=== PATIENT | female | born 1960 | race Two or more races ===

== ENCOUNTER 2016-05-08 23:32 | Emergency (ER) | payer OTHER ==
[2016-05-09] MEDS ORDERED: GABAPENTIN 300 MG CAPSULE PO ONE (03:41)
--- NOTE | 2016-05-09 03:46 | ER Document Report ---
[id number] Notes: Patient is 55-year-old female who presents with complaint of pain into the right hand. Patient's wheezing which is secondary language. She did bring her daughter and her daughter requested that she be learning designer whenever her mother needs help. The daughter did help translate the conversation between me and the patient. Patient says that she has had this pain for last 2 months. No fevers or infections. No recent trauma. Patient works as is a housewife. She says that she knows is the pain is better when she moves arm. Pain is worse at night when standing still. She's had some intermittent swelling to the right hand and arm. Pain is mostly in the hand but radiates up the arm. As of recently the pain has been radiating more up into the arm. No other complaints at this time. Has not seen a doctor about this. TRAVEL OUTSIDE OF THE [place] IN LAST 30 DAYS: No - Related Data Allergies/Adverse Reactions: No Known Allergies Allergy (Verified 05/08/16 23:56) Past Medical History - Social History Smoking Status: Never Smoker Frequency of alcohol use: None Drug Abuse: None Family History: Reviewed & Not Pertinent Patient has suicidal ideation: No Patient has homicidal ideation: No Renal/ Medical History: Denies: Hx Peritoneal Dialysis Past Surgical History: Reports: Hx Section - x3 - Immunizations Hx Diphtheria, Pertussis, Tetanus Vaccination: Yes Review of Systems - Review of Systems Notes: My Normal Review Basic REVIEW OF SYSTEMS: CONSTITUTIONAL : Denies fever, chills, or sweats. Denies recent illness. MUSCULOSKELETAL: Right arm pain SKIN: Denies rash or skin lesions. NEUROLOGICAL: Denies altered mental status or loss of consciousness. Denies headache. Denies weakness or paralysis or loss of use of either side. Denies problems with gait or speech. Denies sensory or motor loss. ALL OTHER SYSTEMS REVIEWED AND NEGATIVE. Physical Exam - Vital signs Vitals: Temp Pulse BP Pulse Ox 97.3 F 69 131/68 H 97 05/08/16 23:42 05/08/16 23:42 05/08/16 23:42 05/08/16 23:42 - Notes Notes: General Appearance: Well nourished, alert, cooperative, no acute distress, mild obvious discomfort. Vitals: reviewed, See vital signs table. Extremities: strength 5/5 in all extremities, good pulses in all extremities, mild tenderness to palpation of the right hand. Some pain made worse with hyperflexion or hyperextension of the wrist. Negative Tinel sign. Distal sensation intact. Patient is able move all fingers but says she has some pain in doing so. Some swelling into the right hand. Capillary refills intact. Distal pulses are intact. No redness. Skin: warm, dry, appropriate color, no rash Neuro: speech clear, oriented x 3, normal affect, responds appropriately to questions. Course - Vital Signs Vital signs: Temp Pulse Resp BP Pulse Ox 97.4 F 66 16 122/46 L 96 05/09/16 03:58 05/09/16 03:58 05/09/16 03:58 05/09/16 03:58 05/09/16 03:58 - Transfer of Care Notes: 05/09/16 06:13 I suspect that most likely etiology behind patient's pain in the hand is nerve impingement or compression. This could be couple tunnel. There are some atypical cyst symptoms for that and that the pain does radiate all the way up the arm. She does have some slight swelling in the hand and distal arm and therefore I feel that ultrasound should still be performed on any type of clotting. I did offer to have the patient stay here tonight will do in the morning. Patient says she prefers to go home and come back in ultrasound called in during the day. Patient will be discharged home with gabapentin to treat for possible neuropathic pain. I informed her that if the ultrasound is negative and she needs to follow-up with the orthopedist or neurologist for further evaluation and testing to determine if this truly is a nerve impingement. Patient encouraged return to ER medially she has any redness, increased swelling, worsening pain. Patient agrees with plan and will be discharged home. Dictation of this chart was performed using voice recognition software; therefore, there may be some unintended grammatical errors. Discharge - Discharge Clinical Impression: Hand pain, right Condition: Good Disposition: HOME, SELF-CARE Additional Instructions: Please return to the ER between 8am and 6pm to have a venous ultrasound of your left arm to rule out blood clot. Please return to the ER immediately if you have worsening pain. If your ultrasound is negative please follow up with the neurologist or orthopedist closely for further revaluation to rule out a pinched nerve in your arm. Return to the ER immediately if you develop any redness or swelling in the arm. Prescriptions: Gabapentin [Neurontin 300 mg Capsule] 300 mg PO QHS #30 cap Referrals: JERE RODRIGUEZ MD [EMERITUS] - Follow up in 3-5 days OMAR HUBER MD [ACTIVE STAFF] - Follow up in 3-5 days
[2016-05-09 04:02] VITALS: BP 122/46
== END 2016-05-09 04:03 | disposition home or self-care (01) ==
LOC: ER 23:32
DX: M79.641 Pain in right hand (principal)
CPT/HCPCS: 99282

== ENCOUNTER → 2016-05-10 | Outpatient (CLI) | payer OTHER ==
--- NOTE | 2016-05-10 16:34 | XCELERA REPORT ---
[address] [address] Upper Extremity Venous Evaluation Name: JUAN JACKSON Age: 55 yrs Gender: Female : 1960 Patient Status: Outpatient Patient Location: Study Date: 05/10/2016 12:57 PM Procedure: Unilateral duplex scan of the right upper extremity veins was performed, including responses to compression and other maneuvers. Reason For Study: RUE PAIN Ordering Physician: DOMINGA LOUIE Performed By: Josefina House Right Side Venous Evaluation Normal vessel filling wall to wall, compression and augmentation as well as Colour flow down to the forearm veins. Interpretation Summary Normal compression, patency, spontaneous and phasic flow of the right upper extremity veins. : DOMINGA LOUIE > Rashel Hernandez
== END ==
LOC: SP 11:58
PROVIDERS: ATTEND Emergency Medicine
DX: M79.601 Pain in right arm (principal); M79.89 Other specified soft tissue disorders
CPT/HCPCS: 93971

== ENCOUNTER 2017-04-07 22:07 | Inpatient (IN) | payer SELFPAY ==
[2017-04-07] MEDS ORDERED: PREDNISONE 20 MG TABLET PO ONE (23:59)
[2017-04-07] MEDS ORDERED: IPRATROPIUM/ALBUTEROL 0.5-2.5 MG/3 ML AMPUL NEB ONE (23:59)
--- NOTE | 2017-04-08 | ER Document Report ---
ED General - General Chief Complaint: Flu Symptoms Stated Complaint: COLD SYMPTOMS Time Seen by Provider: 04/07/17 23:57 Mode of Arrival: Ambulatory Information source: Patient Notes: 56 years old female presents today with runny nose sore throat cough wheezing for the last few days. No fever chills. She is having on and off chest pain while coughing. Denies any nausea vomiting abdominal pain dysuria frequency urgency. TRAVEL OUTSIDE OF THE [place] IN LAST 30 DAYS: No - Related Data Allergies/Adverse Reactions: No Known Allergies Allergy (Verified 05/08/16 23:56) Past Medical History - Social History Smoking Status: Unknown if Ever Smoked Chew tobacco use (# tins/day): No Frequency of alcohol use: Rare Drug Abuse: None Family History: Reviewed & Not Pertinent Patient has suicidal ideation: No Patient has homicidal ideation: No Renal/ Medical History: Denies: Hx Peritoneal Dialysis Past Surgical History: Reports: Hx Section - x3 - Immunizations Hx Diphtheria, Pertussis, Tetanus Vaccination: Yes Review of Systems - Review of Systems Notes: REVIEW OF SYSTEMS: CONSTITUTIONAL : Denies fever, chills, or sweats. Denies recent illness. EENT: Denies eye, ear, throat, or mouth pain or symptoms. Denies nasal or sinus congestion or discharge. Denies throat, tongue, or mouth swelling or difficulty swallowing. CARDIOVASCULAR: Denies chest pain. Denies palpitations or racing or irregular heart beat. Denies ankle edema. RESPIRATORY: As per history of complain GASTROINTESTINAL: Denies abdominal pain or distention. Denies nausea, vomiting , or diarrhea. Denies blood in vomitus, stools, or per rectum. Denies black, tarry stools. Denies constipation. GENITOURINARY: Denies difficulty urinating, painful urination, burning, frequency, blood in urine, or discharge. FEMALE GENITOURINARY: Denies vaginal bleeding, heavy or abnormal periods, irregular periods. Denies vaginal discharge or odor. MUSCULOSKELETAL: Denies back or neck pain or stiffness. Denies joint pain or swelling. SKIN: Denies rash, lesions or sores. HEMATOLOGIC : Denies easy bruising or bleeding. LYMPHATIC: Denies swollen, enlarged glands. NEUROLOGICAL: Denies confusion or altered mental status. Denies passing out or loss of consciousness. Denies dizziness or lightheadedness. Denies headache. Denies weakness or paralysis or loss of use of either side. Denies problems with gait or speech. Denies sensory loss, numbness, or tingling. Denies seizures. PSYCHIATRIC: Denies anxiety or stress. Denies depression, suicidal ideation, or homicidal ideation. ALL OTHER SYSTEMS REVIEWED AND NEGATIVE. PHYSICAL EXAMINATION: GENERAL: Well-appearing, well-nourished and in no acute distress. Morbidly obese scattered wheezing throughout the whole lung. HEAD: Atraumatic, normocephalic. EYES: Pupils equal round and reactive to light, extraocular movements intact, conjunctiva are normal. ENT: Nares patent, oropharynx clear without exudates. Moist mucous membranes. NECK: Normal range of motion, supple without lymphadenopathy LUNGS: Breath sounds clear to auscultation bilaterally and equal. Scattered wheezing throughout the whole lung. HEART: Regular rate and rhythm without murmurs ABDOMEN: Soft, nontender, nondistended abdomen. No guarding, no rebound. No masses appreciated. Female : deferred Musculoskeletal: Normal range of motion, no pitting or edema. No cyanosis. NEUROLOGICAL: Cranial nerves grossly intact. Normal speech, normal gait. Normal sensory, motor exams PSYCH: Normal mood, normal affect. SKIN: Warm, Dry, normal turgor, no rashes or lesions noted. Dictation was performed using [employer] voice recognition software Physical Exam - Vital signs Vitals: Temp Pulse Resp BP Pulse Ox 99.1 F 95 20 131/80 H 95 04/07/17 22:30 04/07/17 22:30 04/07/17 22:30 04/07/17 22:30 04/07/17 22:30 Course - Re-evaluation Re-evalutation: 04/08/17 04:38 She was given 2 treatments of bronchodilators, still she is wheezing and hypoxic on room air therefore the case was discussed with the daughter and patient, they agreed to stay in the hospital. - Vital Signs Vital signs: Temp Pulse Resp BP Pulse Ox 99.1 F 95 29 H 117/66 91 L 04/07/17 22:30 04/07/17 22:30 04/08/17 04:01 04/08/17 04:00 04/08/17 04:01 - Laboratory Result Diagrams: 04/08/17 02:15 Laboratory results interpreted by me: 04/08/17 04/08/17 02:15 03:20 RDW 14.5 H Monocytes % 14.4 H ABG pO2 57.2 L ABG O2 Saturation 90.8 L Discharge - Discharge Clinical Impression: Wheezing, Hypoxia Pneumonia Qualifiers: Pneumonia type: due to unspecified organism Laterality: right Lung location: lower lobe of lung Qualified Code(s): J18.1 - Lobar pneumonia, unspecified organism Condition: Fair Disposition: ADMITTED INPATIENT Admitting Provider: Hospitalist Unit Admitted: Telemetry - Dr. Jacobs
--- NOTE | 2017-04-08 01:28 | RADIOLOGY REPORT (SQ) ---
EXAM DESCRIPTION: CHEST PA/LAT CLINICAL HISTORY: 56 years, Female, Chest pain COMPARISON: None. LIMITATIONS: None. FINDINGS: Moderate lung volumes, small streakiness of the left lower lobe, small atelectasis or scar in the left midlung field, pulmonary vascular congestion, normal cardiac silhouette, and intact bony thorax. IMPRESSION: Small pneumonia/atelectasis of the left lung. 2011 [employer]- All Rights Reserved
[2017-04-08] MEDS ORDERED: CEFTRIAXONE INJ 1000 MG VIAL IV ONE (01:34)
[2017-04-08] MEDS ORDERED: IPRATROPIUM/ALBUTEROL 0.5-2.5 MG/3 ML AMPUL NEB ONE ×2 (02:28→05:00)
[2017-04-08 02:35] LABS: ABSOLUTE LYMPHOCYTES (AUTO) 1.6 10^3/uL (0.5-4.7); ABSOLUTE NEUT (AUTO) 4.5 10^3/uL (1.7-8.2); BASOPHILS % (AUTO) 0.4 % (0-2); EOSINOPHILS % (AUTO) 0.1 % (0-6); HEMATOCRIT 41.5 % (36.0-47.0); HEMOGLOBIN 14.5 g/dL (12.0-15.5); LYMPHOCYTES % (AUTO) 22.3 % (13-45); MEAN CORPUSCULAR HEMOGLOBIN 30.3 pg (27.0-33.4); MEAN CORPUSCULAR HGB CONC 34.9 g/dL (32.0-36.0); MEAN CORPUSCULAR VOLUME 87 fl (80-97); MONOCYTES % (AUTO) 14.4 % (3-13); RED BLOOD COUNT 4.76 10^6/uL (3.72-5.28); RED CELL DISTRIBUTION WIDTH 14.5 % (11.5-14.0); SEGMENTED NEUTROPHILS % (AUTO) 62.8 % (42-78); WHITE BLOOD COUNT 7.1 10^3/uL (4.0-10.5)
[2017-04-08] MEDS ORDERED: HYDROCODONE/ACETAMINOPHEN 5-325 MG TABLET PO ONE (03:33)
[2017-04-08 03:45] LABS: ARTERIAL BLOOD BASE EXCESS -0.3 mmol/L; ARTERIAL BLOOD O2 SATURATION 90.8 % (94-98)
[2017-04-08] MEDS ORDERED: ACETAMINOPHEN 325 MG TABLET PO PRN (04:38)
[2017-04-08] MEDS ORDERED: IPRATROPIUM/ALBUTEROL 0.5-2.5 MG/3 ML AMPUL NEB PRN (04:38)
[2017-04-08] MEDS ORDERED: GUAIFENESIN SYRP 200 MG/10 ML UDC PO PRN (04:38)
[2017-04-08] MEDS ORDERED: CHLORPHENIRAMINE MALEATE 4 MG TABLET PO ONE (04:40)
[2017-04-08] MEDS ORDERED: AZITHROMYCIN 500 MG in DEXTROSE 5%-WATER 250 ML IV ONE (05:00)
[2017-04-08] MEDS ORDERED: FLUTICASONE NASAL SPRAY 50 MCG/SPRY 120 SPRAY/16 GM NASL ONE (05:00)
--- NOTE | 2017-04-08 06:08 | PDOC H&P ---
History of Present Illness Admission Date/PCP: 04/08/17 04:44 Patient complains of: Shortness of breath History of Present Illness: JUAN JACKSON is a 56 year old Burkinan-speaking female with a past medical history of bronchitis and obesity presents with 48 hours of shortness of breath , nonproductive cough and fever. She admits sinus congestion, fever and sore throat. In the emergency room she is found to have tachypnea, fever of 100.1, a PO2 of 57 and a left-sided pneumonia on chest x-ray. She started on empiric antibiotics and referred to the hospitalist for admission. She denies recent pneumonia or infectious contacts. She has tried several [id number] remedies and 3 days of tetracycline without significant improvement. Past Medical History Medical History: None Pulmonary Medical History: Reports: Bronchitis Past Surgical History Past Surgical History: Reports: Section - x3 Social History Information Source: Patient Lives with: Family Smoking Status: Never Smoker Frequency of Alcohol Use: None Drugs: None - Advance Directive Resuscitation Status: Full Code Family History Family History: COPD, DM Parental Family History Reviewed: Yes Children Family History Reviewed: Yes Sibling(s) Family History Reviewed.: Yes Medication/Allergy Home Medications: Ciprofloxacin HCl [Cipro 500 mg Tablet] 500 mg PO BID #14 tablet 04/04/15 Hydrocodone/Acetaminophen [[place] 5-325 mg Tablet] 1 tab PO Q4 PRN #30 tablet Ondansetron [Zofran Odt 4 mg Tablet] 1 tab PO Q4H PRN #20 tab.rapdis 04/04/15 Gabapentin [Neurontin 300 mg Capsule] 300 mg PO QHS #30 cap 05/09/16 Allergies/Adverse Reactions: No Known Allergies Allergy (Verified 05/08/16 23:56) Review of Systems Constitutional: ABSENT: chills, fever(s), headache(s), weight gain, weight loss Eyes: ABSENT: visual disturbances Ears: ABSENT: hearing changes Cardiovascular: ABSENT: chest pain, dyspnea on exertion, edema, orthropnea, palpitations Respiratory: ABSENT: cough, hemoptysis Gastrointestinal: ABSENT: abdominal pain, constipation, diarrhea, hematemesis, hematochezia, nausea, vomiting Genitourinary: ABSENT: dysuria, hematuria Musculoskeletal: ABSENT: joint swelling Integumentary: ABSENT: rash, wounds Neurological: ABSENT: abnormal gait, abnormal speech, confusion, dizziness, focal weakness, syncope Psychiatric: ABSENT: anxiety, depression, homidical ideation, suicidal ideation Endocrine: ABSENT: cold intolerance, heat intolerance, polydipsia, polyuria Hematologic/Lymphatic: ABSENT: easy bleeding, easy bruising Physical Exam Vital Signs: Temp Pulse Resp BP Pulse Ox 99.1 F 90 12 109/73 96 04/08/17 05:30 04/08/17 05:00 04/08/17 05:30 04/08/17 05:30 04/08/17 05:30 General appearance: PRESENT: cooperative, mild distress, obese Head exam: PRESENT: atraumatic Eye exam: PRESENT: conjunctiva pink, EOMI, PERRLA. ABSENT: scleral icterus Ear exam: PRESENT: normal external ear exam Mouth exam: PRESENT: moist, tongue midline Throat exam: PRESENT: post pharyngeal erythema, tonsillar erythema. ABSENT: tonsillar exudate, tonsillogmegaly Neck exam: ABSENT: carotid bruit, JVD, lymphadenopathy, thyromegaly Respiratory exam: PRESENT: accessory muscle use, crackles, rales, retraction, wheezes. ABSENT: stridor Cardiovascular exam: PRESENT: RRR. ABSENT: diastolic murmur, rubs, systolic murmur Pulses: PRESENT: normal dorsalis pedis pul Vascular exam: PRESENT: normal capillary refill GI/Abdominal exam: PRESENT: normal bowel sounds, soft. ABSENT: distended, guarding, mass, organolmegaly, rebound, tenderness Rectal exam: PRESENT: deferred Extremities exam: PRESENT: calf tenderness Neurological exam: PRESENT: alert, awake, oriented to person, oriented to place , oriented to time, oriented to situation, CN II-XII grossly intact. ABSENT: motor sensory deficit Psychiatric exam: PRESENT: appropriate affect, normal mood. ABSENT: homicidal ideation, suicidal ideation Skin exam: PRESENT: dry, intact, warm. ABSENT: cyanosis, rash Results Impressions: Chest X-Ray 04/07/17 23:59 IMPRESSION: Small pneumonia/atelectasis of the left lung. 2010 [employer]- All Rights Reserved Assessment & Plan - Diagnosis (1) Pneumonia Qualifiers: Pneumonia type: due to unspecified organism Laterality: left Lung location: lower lobe of lung Qualified Code(s): J18.1 - Lobar pneumonia, unspecified organism Plan: Telemetry for observation, pneumonia care set, incentive spirometry, albuterol and Atrovent, empiric antibiotics follow-up CBC, influenza screen and culture. (2) Sinusitis Is this a current diagnosis for this admission?: Yes Plan: Chlorpheniramine and Flonase ordered (3) GERD (gastroesophageal reflux disease) Is this a current diagnosis for this admission?: Yes Plan: Proton pump inhibitor ordered (4) Hypoxia Is this a current diagnosis for this admission?: Yes Plan: Secondary to pneumonia, supplemental oxygen consider repeat imaging (5) Obesity Is this a current diagnosis for this admission?: Yes Plan: Morbid obesity will evaluate for metabolic cause with evaluation of thyroid function and dietitian consultation - Time Time Spent: 30 to 50 Minutes
[2017-04-08] MEDS ORDERED: CHLORPHENIRAMINE MALEATE 4 MG TABLET ONE (06:12)
[2017-04-08] MEDS ORDERED: AZITHROMYCIN INJ 500 MG VIAL IV ONE (06:12)
[2017-04-08] MEDS ORDERED: FLUTICASONE NASAL SPRAY 50 MCG/SPRY 120 SPRAY/16 GM ONE (06:12)
[2017-04-08] MEDS: HEPARIN SOD (PORCINE) 5,000 UNIT/ML 1 ML SYRINGE SUBCUT SCH ×3 (06:40→21:48)
[2017-04-08 07:32] LABS: ABSOLUTE LYMPHOCYTES (AUTO) 0.5 10^3/uL (0.5-4.7); ABSOLUTE MONOCYTES (AUTO) 0.2 10^3/uL (0.1-1.4); ABSOLUTE NEUT (AUTO) 3.9 10^3/uL (1.7-8.2); BASOPHILS % (AUTO) 0.3 % (0-2); HEMATOCRIT 40.9 % (36.0-47.0); HEMOGLOBIN 13.9 g/dL (12.0-15.5); HGB HCT DIFFERENCE 0.8; LYMPHOCYTES % (AUTO) 11.3 % (13-45); MEAN CORPUSCULAR HEMOGLOBIN 30.1 pg (27.0-33.4); MEAN CORPUSCULAR HGB CONC 33.9 g/dL (32.0-36.0); MEAN CORPUSCULAR VOLUME 89 fl (80-97); MONOCYTES % (AUTO) 3.7 % (3-13); RED BLOOD COUNT 4.61 10^6/uL (3.72-5.28); RED CELL DISTRIBUTION WIDTH 14.1 % (11.5-14.0); SEGMENTED NEUTROPHILS % (AUTO) 84.7 % (42-78); WHITE BLOOD COUNT 4.5 10^3/uL (4.0-10.5)
[2017-04-08 07:50] LABS: BLOOD UREA NITROGEN 13 mg/dL (7-20); CALCIUM 9.9 mg/dL (8.4-10.2); CREATININE RESULT 0.65 mg/dL (0.52-1.25); GLUCOSE 227 mg/dL (75-110); POTASSIUM 3.7 mmol/L (3.6-5.0)
[2017-04-08 08:02] LABS: ANION GAP 19 (5-19); CARBON DIOXIDE 20 mmol/L (22-30); CHLORIDE 99 mmol/L (98-107); SODIUM 137.8 mmol/L (137-145)
[2017-04-08] MEDS: IPRATROPIUM/ALBUTEROL 0.5-2.5 MG/3 ML AMPUL NEB SCH ×3 (08:20→19:44)
[2017-04-08] MEDS: FLUTICASONE NASAL SPRAY 50 MCG/SPRY 120 SPRAY/16 GM NASL SCH ×2 (09:12→21:48)
[2017-04-08] MEDS: KETOROLAC TROMETHAMINE INJ/PF 30 MG/1 ML SDV IV PRN ×2 (13:35→20:14)
--- NOTE | 2017-04-08 14:23 | PDOC PROGRESS REPORT ---
Subjective Progress Note for:: 04/08/17 Subjective:: Patient is seen on morning rounds as a follow-up on pneumonia. She has been resting in bed comfortably on supplemental oxygen via nasal cannula. She is sleeping upon entering the room but wakes easily. She tells me that she feels that her breathing has improved. Her only complaint at present is a persistent headache that has not resolved with Tylenol. She denies fever, chest pain, palpitations, dyspnea at rest, orthopnea, abd pain , nausea and vomiting. She has no other questions or concerns. Reason For Visit: PNEUMONIA Physical Exam Vital Signs: Temp Pulse Resp BP Pulse Ox 98.1 F 95 18 121/70 95 04/08/17 12:05 04/08/17 13:52 04/08/17 13:52 04/08/17 12:05 04/08/17 12:05 Intake & Output 04/07/17 04/08/17 04/09/17 06:59 06:59 06:59 Weight 78.9 kg General appearance: PRESENT: no acute distress, obese, well-developed, well- nourished Head exam: PRESENT: atraumatic, normocephalic Eye exam: PRESENT: conjunctiva pink, EOMI, PERRLA. ABSENT: scleral icterus Ear exam: PRESENT: normal external ear exam Mouth exam: PRESENT: moist, tongue midline Neck exam: ABSENT: carotid bruit, JVD, lymphadenopathy, thyromegaly Respiratory exam: PRESENT: crackles, rhonchi, symmetrical, unlabored. ABSENT: accessory muscle use, rales, retraction, tachypnea, wheezes Cardiovascular exam: PRESENT: RRR, +S1, +S2. ABSENT: diastolic murmur, rubs, systolic murmur, tachycardia Pulses: PRESENT: normal dorsalis pedis pul Vascular exam: PRESENT: normal capillary refill GI/Abdominal exam: PRESENT: normal bowel sounds, soft. ABSENT: distended, guarding, mass, organolmegaly, rebound, tenderness Rectal exam: PRESENT: deferred Extremities exam: PRESENT: full ROM. ABSENT: calf tenderness, clubbing, pedal edema Neurological exam: PRESENT: alert, awake, oriented to person, oriented to place , oriented to time, oriented to situation, CN II-XII grossly intact. ABSENT: motor sensory deficit Psychiatric exam: PRESENT: appropriate affect, normal mood. ABSENT: homicidal ideation, suicidal ideation Skin exam: PRESENT: dry, intact, warm. ABSENT: cyanosis, rash Results Laboratory Results: 04/08/17 06:55 04/08/17 06:55 04/08/17 04/08/17 06:55 06:55 WBC 4.5 RBC 4.61 Hgb 13.9 Hct 40.9 MCV 89 MCH 30.1 MCHC 33.9 RDW 14.1 H Plt Count 272 Seg Neutrophils % 84.7 H Lymphocytes % 11.3 L Monocytes % 3.7 Eosinophils % 0.0 Basophils % 0.3 Absolute Neutrophils 3.9 Absolute Lymphocytes 0.5 Absolute Monocytes 0.2 Absolute Eosinophils 0.0 Absolute Basophils 0.0 Sodium 137.8 Potassium 3.7 Chloride 99 Carbon Dioxide 20 L Anion Gap 19 BUN 13 Creatinine 0.65 Est GFR ( Amer) > 60 Est GFR (Non-Af Amer) > 60 Glucose 227 H Calcium 9.9 Impressions: Chest X-Ray 04/07/17 23:59 IMPRESSION: Small pneumonia/atelectasis of the left lung. 2010 [employer]- All Rights Reserved Assessment & Plan - Diagnosis (1) Pneumonia Qualifiers: Pneumonia type: due to unspecified organism Laterality: left Lung location: lower lobe of lung Qualified Code(s): J18.1 - Lobar pneumonia, unspecified organism Is this a current diagnosis for this admission?: Yes Plan: The patient is admitted on telemetry for observation. Cultures are pending. She is empirically placed on azithromycin and Rocephin, scheduled and as needed DuoNeb's, mucinex twice daily, and p.o. prednisone. Supplemental oxygen as needed. (2) Hypoxia Is this a current diagnosis for this admission?: Yes Plan: Secondary to pneumonia. Supplemental oxygen as needed per protocols. Plan as above. (3) Sinusitis Is this a current diagnosis for this admission?: Yes (4) GERD (gastroesophageal reflux disease) Is this a current diagnosis for this admission?: Yes Plan: Continue PPI (5) Obesity Is this a current diagnosis for this admission?: Yes - Time Time Spent with patient: 15-24 minutes Anticipated discharge: Home
[2017-04-08] MEDS ORDERED: CEFTRIAXONE 1 GM/D5W RTU 1 GM/50 ML RTUPB IV SCH (22:00)
[2017-04-09] MEDS: IPRATROPIUM/ALBUTEROL 0.5-2.5 MG/3 ML AMPUL NEB SCH ×2 (02:27→07:36)
[2017-04-09] MEDS: HEPARIN SOD (PORCINE) 5,000 UNIT/ML 1 ML SYRINGE SUBCUT SCH (05:18)
[2017-04-09 06:06] LABS: ABSOLUTE EOSINOPHILS # (AUTO) 0.1 10^3/uL (0.0-0.6); ABSOLUTE LYMPHOCYTES (AUTO) 1.8 10^3/uL (0.5-4.7); ABSOLUTE MONOCYTES (AUTO) 0.8 10^3/uL (0.1-1.4); ABSOLUTE NEUT (AUTO) 3.3 10^3/uL (1.7-8.2); BASOPHILS % (AUTO) 0.4 % (0-2); EOSINOPHILS % (AUTO) 2.5 % (0-6); HEMOGLOBIN 13.4 g/dL (12.0-15.5); HGB HCT DIFFERENCE -0.8; LYMPHOCYTES % (AUTO) 29.8 % (13-45); MEAN CORPUSCULAR HGB CONC 32.7 g/dL (32.0-36.0); MEAN CORPUSCULAR VOLUME 89 fl (80-97); RED BLOOD COUNT 4.63 10^6/uL (3.72-5.28); SEGMENTED NEUTROPHILS % (AUTO) 54.3 % (42-78)
[2017-04-09 06:27] LABS: ANION GAP 12 (5-19); BLOOD UREA NITROGEN 19 mg/dL (7-20); CARBON DIOXIDE 23 mmol/L (22-30); CHLORIDE 103 mmol/L (98-107); CREATININE RESULT 0.66 mg/dL (0.52-1.25); GLUCOSE 124 mg/dL (75-110); POTASSIUM 3.5 mmol/L (3.6-5.0); SODIUM 137.9 mmol/L (137-145)
[2017-04-09] MEDS ORDERED: ALBUTEROL SULFATE HFA (90 MCG/PUFF) 200 PUFF/8.5 GM MDI IH PRN (09:18)
[2017-04-09] MEDS: FLUTICASONE NASAL SPRAY 50 MCG/SPRY 120 SPRAY/16 GM NASL SCH (09:24)
[2017-04-09] MEDS ORDERED: AZITHROMYCIN 500 MG in DEXTROSE 5%-WATER 250 ML IV SCH (10:00)
[2017-04-09 12:49] VITALS: BP 106/66
--- NOTE | 2017-04-09 17:16 | PDOC DISCHARGE SUMMARY ---
General - Admit/Disc Date/PCP Admission Date/Primary Care Provider: 04/08/17 04:44 Discharge Date: 04/09/17 - Discharge Diagnosis (1) Pneumonia Is this a current diagnosis for this admission?: Yes (2) Hypoxia Is this a current diagnosis for this admission?: Yes (3) Sinusitis Is this a current diagnosis for this admission?: Yes (4) GERD (gastroesophageal reflux disease) Is this a current diagnosis for this admission?: Yes (5) Obesity Is this a current diagnosis for this admission?: Yes - Additional Information Resuscitation Status: Full Code Discharge Diet: As Tolerated Discharge Activity: Activity As Tolerated, Balance Activity w/Rest, Slowly Increase Activity Prescriptions: Albuterol Sulfate [Ventolin HFA MDI 18 GM] 1 - 2 puff IH Q4H PRN #1 mdi PRN Reason: Azithromycin [Zithromax] 250 mg PO DAILY #4 tablet Guaifenesin [Mucinex] 600 mg PO BID #20 tab.er.12h Guaifenesin/Hydrocodone [[place] 2.5-200 mg/5 ml Soln] 5 ml PO Q4HP PRN #120 solution PRN Reason: Cough Prednisone [Deltasone 10 mg Tablet] 10 mg PO ASDIR PRN #21 tablet PRN Reason: Tramadol HCl [Ultram] 50 mg PO Q6HP PRN #12 tablet PRN Reason: For Headache Or Pain Home Medications: Acetaminophen [Tylenol 325 mg Tablet] 650 mg PO Q4HP PRN tablet 04/09/17 Albuterol Sulfate [Ventolin HFA MDI 18 GM] 1 - 2 puff IH Q4H PRN #1 mdi Azithromycin [Zithromax] 250 mg PO DAILY #4 tablet 04/09/17 Guaifenesin [Mucinex] 600 mg PO BID #20 tab.er.12h 04/09/17 Guaifenesin/Hydrocodone [[place] 2.5-200 mg/5 ml Soln] 5 ml PO Q4HP PRN #120 solution 04/09/17 Prednisone [Deltasone 10 mg Tablet] 10 mg PO ASDIR PRN #21 tablet 04/09/17 Tramadol HCl [Ultram] 50 mg PO Q6HP PRN #12 tablet 04/09/17 History of Present Illness History of Present Illness: Per H&P by Dr. Billings: JUAN JACKSON is a 56 year old Azeri-speaking female with a past medical history of bronchitis and obesity presents with 48 hours of shortness of breath, nonproductive cough and fever. She admits sinus congestion , fever and sore throat. In the emergency room she is found to have tachypnea, fever of 100.1, a PO2 of 57 and a left-sided pneumonia on chest x-ray. She started on empiric antibiotics refer to the hospitalist for admission. She denies recent pneumonia or infectious contacts. She has tried several over-the- counter remedies and 3 days of tetracycline without significant improvement Hospital Course Hospital Course: The patient was admitted to telemetry for observation. Her pneumonia was treated with incentive spirometry, albuterol and Atrovent nebulizer treatments, supplemental oxygen as needed, and was empirically placed on azithromycin and Rocephin. At time of dictation, her blood cultures have no growth at 24 hours. The patient's symptoms rapidly improved. She is now breathing comfortably and maintaining oxygen saturations while ambulating on room air. She does complain a mild headache that she states is typical for her when on steroid therapy. She is discharged to home with self care. She is provided prescriptions for azithromycin to complete a five day treatment, a steroid alexandra, albuterol Hfa as needed, mucinex, and codeine cough syrup. Physical Exam Vital Signs: Temp Pulse Resp BP Pulse Ox 100.2 F 88 20 106/66 94 04/09/17 13:20 04/09/17 13:20 04/09/17 13:20 04/09/17 13:20 04/09/17 13:20 Intake & Output 04/08/17 04/09/17 04/10/17 06:59 06:59 06:59 Intake Total 1375 Balance 1375 Weight 78.9 kg 90.8 kg General appearance: PRESENT: no acute distress, obese, well-developed, well- nourished Head exam: PRESENT: atraumatic, normocephalic Eye exam: PRESENT: conjunctiva pink, EOMI, PERRLA. ABSENT: scleral icterus Ear exam: PRESENT: normal external ear exam Mouth exam: PRESENT: moist, tongue midline Neck exam: ABSENT: carotid bruit, JVD, lymphadenopathy, thyromegaly Respiratory exam: PRESENT: clear to auscultation nils, rhonchi, symmetrical, unlabored. ABSENT: rales, wheezes Cardiovascular exam: PRESENT: RRR. ABSENT: diastolic murmur, rubs, systolic murmur Pulses: PRESENT: normal dorsalis pedis pul Vascular exam: PRESENT: normal capillary refill GI/Abdominal exam: PRESENT: normal bowel sounds, soft. ABSENT: distended, guarding, mass, organolmegaly, rebound, tenderness Rectal exam: PRESENT: deferred Extremities exam: PRESENT: full ROM. ABSENT: calf tenderness, clubbing, pedal edema Neurological exam: PRESENT: alert, awake, oriented to person, oriented to place , oriented to time, oriented to situation, CN II-XII grossly intact. ABSENT: motor sensory deficit Psychiatric exam: PRESENT: appropriate affect, normal mood. ABSENT: homicidal ideation, suicidal ideation Skin exam: PRESENT: dry, intact, warm. ABSENT: cyanosis, rash Results Laboratory Results: 04/09/17 05:00 04/09/17 05:00 04/09/17 04/09/17 05:00 05:00 WBC 6.0 RBC 4.63 Hgb 13.4 Hct 41.0 MCV 89 MCH 29.0 MCHC 32.7 RDW 14.0 Plt Count 269 Seg Neutrophils % 54.3 Lymphocytes % 29.8 Monocytes % 13.0 Eosinophils % 2.5 Basophils % 0.4 Absolute Neutrophils 3.3 Absolute Lymphocytes 1.8 Absolute Monocytes 0.8 Absolute Eosinophils 0.1 Absolute Basophils 0.0 Sodium 137.9 Potassium 3.5 L Chloride 103 Carbon Dioxide 23 Anion Gap 12 BUN 19 Creatinine 0.66 Est GFR ( Amer) > 60 Est GFR (Non-Af Amer) > 60 Glucose 124 H Calcium 9.0 Impressions: Chest X-Ray 04/07/17 23:59 IMPRESSION: Small pneumonia/atelectasis of the left lung. 2010 [employer]- All Rights Reserved Qualifiers [facility] BEING DISCHARGED WITH ANY OF THE FOLLOWING DIAGNOSIS?: No
== END 2017-04-09 14:05 | disposition home or self-care (01) | DRG 195 ==
LOC: ER 22:07 → EH 04-08 04:44 → 4N 04-08 05:40
PROVIDERS: ADMIT Internal Medicine; ATTEND Internal Medicine
PROC: 3E0F73Z Introduction of Anti-inflammatory into Respiratory Tract, Via Natural or Artificial Opening (ICD-10-PCS; principal; 2017-04-08)
DX: J18.1 Lobar pneumonia, unspecified organism (principal); R09.02 Hypoxemia; J32.9 Chronic sinusitis, unspecified; K21.9 Gastro-esophageal reflux disease without esophagitis; E66.9 Obesity, unspecified; Z68.37 Body mass index [BMI] 37.0-37.9, adult; Z79.899 Other long term (current) drug therapy; Z83.6 Family history of other diseases of the respiratory system; Z83.3 Family history of diabetes mellitus
CPT/HCPCS: 36415; 71020; 80048; 82803; 85025; 87040; 87804; 94640; 94799; 96365; 99284; J0456; J0696; J1644; J1885; J3490; J7060; J7512; J7620